=== PATIENT | female | born 1985 | race Caucasian/White ===

== ENCOUNTER 2018-04-07 13:39 | Emergency (ER) | payer MEDICAID ==
[~2018-04-07] VITALS: Ht 149.9 cm; Wt 47.7 kg
[2018-04-07] MEDS ORDERED: GABA-531 PO (14:04)
[2018-04-07] MEDS ORDERED: CLON.5 PO (14:04)
[2018-04-07] MEDS ORDERED: PHEN100C23 PO ×2 (14:04)
[2018-04-07] MEDS ORDERED: SUMA25TA9 PO (14:04)
[2018-04-07] MEDS ORDERED: SUMAtriptan SUCCINATE 6 MG/0.5 ML VIAL SQ ONE (16:00)
[2018-04-07] MEDS ORDERED: LORazepam 2 MG/ML VIAL IVP ONE (17:00)
[2018-04-07 17:53] LABS: BASOPHILS % (AUTO) 0.5 % (0.0-2.0); EOSINOPHILS % (AUTO) 0.4 % (1.0-6.0); LYMPHOCYTES # (AUTO) 1.4 K/uL (1.0-4.8); LYMPHOCYTES % (AUTO) 29.7 % (22.0-44.0); MEAN CORPUSCULAR HEMOGLOBIN 32.6 pg (26.0-34.0); MEAN CORPUSCULAR HGB CONC 34.1 G/dL (31.0-37.0); MEAN CORPUSCULAR VOLUME 96 fL (80-100); MONOCYTES # (AUTO) 0.4 K/uL (0.1-1.0); MONOCYTES % (AUTO) 8.5 % (2.0-9.0); NEUTROPHILS # (AUTO) 2.9 K/uL (1.8-7.7); NEUTROPHILS % (AUTO) 60.9 % (40.0-70.0); PLATELET COUNT (AUTO) 242 K/uL (150-450); RED BLOOD CELL COUNT(AUTO) 3.97 MIL/uL (4.00-5.20); RED CELL DISTRIBUTION WIDTH 14.2 % (11.5-14.5)
[2018-04-07 18:02] LABS: ANION GAP 11 mmol/L (8-16); CALCIUM, TOTAL 8.9 mg/dL (8.8-10.5); CARBON DIOXIDE 25 mmol/L (22-29); CHLORIDE 105 mmol/L (98-107); GLOMERULAR FILTR. RATE CALC > 60 mL/min (>60); GLUCOSE,RANDOM 60 mg/dL (70-110); POTASSIUM 3.6 mmol/L (3.5-5.1); SODIUM SERUM 141 mmol/L (136-145); UREA NITROGEN, BLOOD 6 mg/dL (7-18)
[2018-04-07 18:09] LABS: ALANINE AMINOTRANSFERASE 35 U/L (12-78); ALBUMIN 3.8 g/dL (3.4-5.0); ALKALINE PHOSPHATASE 48 U/L (46-116); ASPARTATE AMINOTRANSFERASE 17 U/L (15-37); BILIRUBIN,TOTAL 0.3 mg/dL (0.1-1.0); PHENYTOIN (DILANTIN) 11.2 mcg/mL (10.0-20.0); TOTAL PROTEIN, SERUM 6.4 g/dL (6.4-8.2)
[2018-04-07] MEDS ORDERED: PHENYTOIN SODIUM 500 MG in SODIUM CHLORIDE 0.9% 100 ML IV ONE (18:30)
[2018-04-07] MEDS ORDERED: KETOROLAC TROMETHAMINE 30 MG/ML VIAL IVP ONE (18:30)
[2018-04-07] MEDS ORDERED: METOCLOPRAMIDE HCL 5 MG/ML 2 ML VIAL IVP ONE (18:30)
[2018-04-07] MEDS ORDERED: HYDROmorphone 2 MG/ML SYRINGE IVP ONE (18:30)
[2018-04-07] MEDS ORDERED: SODIUM CHLORIDE 0.9% 1,000 ML IV ONE (19:09)
[2018-04-07] MEDS ORDERED: DiphenhydrAMINE HCL 50 MG/ML VIAL IVP ONE ×2 (19:15→21:15)
[2018-04-07] MEDS ORDERED: DEXAMETHASONE SOD PHOS 4 MG/ML 5 ML VIAL IVP ONE (19:30)
[2018-04-07] MEDS ORDERED: MORPHINE SULFATE 2 MG/ML SYRINGE IVP ONE (20:15)
[2018-04-07 20:16] VITALS: BP 115/77
== END 2018-04-07 21:30 | disposition home or self-care (01) ==
LOC: EMS 13:41
DX: G43.909 Migraine, unspecified, not intractable, without status migrainosus (principal); D49.7 Neoplasm of unspecified behavior of endocrine glands and other parts of nervous system; C95.90 Leukemia, unspecified not having achieved remission; Z88.8 Allergy status to other drugs, medicaments and biological substances
CPT/HCPCS: 36415; 70450; 80053; 80185; 85025; 96365; 96372; 96375; 96376; 99285; J1100; J1165; J1170; J1200; J1885; J2060; J2270; J2765; J3030; J7030; J7050

== ENCOUNTER 2019-10-10 21:19 | Inpatient (IN) | payer MEDICAID ==
[~2019-10-10] VITALS: Ht 157.5 cm; Wt 47.3 kg
[~2019-10-10 21:19] MED LIST: CLON.5 PO; GABA-531 PO; PHEN100C23 PO; SUMA25TA9 PO
[2019-10-10] MEDS ORDERED: LevETIRAcetam 1,500 MG in DEXTROSE 5%-WATER 100 ML IV ONE (21:45)
[2019-10-10 22:54] LABS: BASOPHILS % (AUTO) 0.7 % (0.0-2.0); EOSINOPHILS % (AUTO) 1.4 % (1.0-6.0); HEMATOCRIT 37.6 % (36-46); HEMOGLOBIN 12.8 g/dL (12.0-16.0); LYMPHOCYTES # (AUTO) 1.8 K/uL (1.0-4.8); MEAN CORPUSCULAR HEMOGLOBIN 32.6 pg (26.0-34.0); MEAN CORPUSCULAR VOLUME 96 fL (80-100); MONOCYTES # (AUTO) 0.4 K/uL (0.1-1.0); NEUTROPHILS % (AUTO) 56.9 % (40.0-70.0); PLATELET COUNT (AUTO) 271 K/uL (150-450); RED BLOOD CELL COUNT(AUTO) 3.91 MIL/uL (4.00-5.20)
[2019-10-10] MEDS ORDERED: SODIUM CHLORIDE 0.9% 1,000 ML IV ONE (23:00)
[2019-10-10] MEDS ORDERED: METOCLOPRAMIDE HCL 5 MG/ML 2 ML VIAL IVP ONE (23:00)
[2019-10-10 23:05] LABS: ANION GAP 10 mmol/L (8-16); CALCIUM, TOTAL 8.7 mg/dL (8.8-10.5); CARBON DIOXIDE 25 mmol/L (22-29); CHLORIDE 107 mmol/L (98-107); CREATININE 0.64 mg/dL (0.60-1.30); GLOMERULAR FILTR. RATE CALC > 60 mL/min (>60); GLUCOSE,RANDOM 70 mg/dL (70-110); POTASSIUM 3.6 mmol/L (3.5-5.1); SODIUM SERUM 142 mmol/L (136-145); UREA NITROGEN, BLOOD 5 mg/dL (7-18)
[2019-10-10 23:14] LABS: LACTIC ACID 0.9 mmol/L (0.4-2.0)
[2019-10-10] MEDS ORDERED: PHENYTOIN SODIUM 500 MG in SODIUM CHLORIDE 0.9% 100 ML IV ONE (23:15)
[2019-10-10 23:30] LABS: ALANINE AMINOTRANSFERASE 20 U/L (12-78); ALKALINE PHOSPHATASE 52 U/L (46-116); ASPARTATE AMINOTRANSFERASE 21 U/L (15-37); BILIRUBIN,TOTAL 0.4 mg/dL (0.1-1.0); CREATINE KINASE, TOTAL ONLY 464 U/L (26-192); HCG,QUANTITATIVE < 1 mIU/mL (0-6); TOTAL PROTEIN, SERUM 6.9 g/dL (6.4-8.2)
[2019-10-10] MEDS ORDERED: 0.9% SODIUM CHLORIDE 10 ML SYRINGE IVP PRN (23:45)
[2019-10-10] MEDS ORDERED: ACETAMINOPHEN 325 MG TABLET PO PRN (23:45)
[2019-10-10] MEDS: LORazepam 2 MG/ML VIAL IVP PRN (23:57)
[2019-10-11 03:17] VITALS: BP 91/68
[2019-10-11] MEDS: LORazepam 2 MG/ML VIAL IVP PRN (03:24)
[2019-10-11] MEDS ORDERED: LORazepam 2 MG/ML VIAL IVP PRN ×2 (03:30→18:30)
[2019-10-11 05:13] LABS: APPEARANCE,URINE CLEAR (CLEAR); BILIRUBIN,URINE NEGATIVE (NEGATIVE); GLUCOSE, URINE (UA) NEGATIVE (NEGATIVE); KETONES,URINE TRACE mg/dL (NEGATIVE); LEUKOCYTE ESTERASE ,URINE NEGATIVE (NEGATIVE); NITRATE,URINE NEGATIVE (NEGATIVE); OCCULT BLOOD,URINE LARGE (NEGATIVE); PH,URINE 5.5 (5.0-8.0); PROTEIN,URINE NEGATIVE (NEGATIVE); UROBILINOGEN,URINE 0.2 mg/dL (<=1.0)
[2019-10-11 05:18] LABS: AMPHET/METH SCREEN,URINE NEGATIVE (NEGATIVE); BARBITURATE SCREEN, URINE NEGATIVE (NEGATIVE); BENZODIAZEPINES SCREEN,URINE POSITIVE (NEGATIVE); CANNABINOID SCREEN,URINE POSITIVE (NEGATIVE); COCAINE SCREEN,URINE NEGATIVE (NEGATIVE); METHADONE SCREEN, URINE NEGATIVE (NEGATIVE); OPIATE SCREEN,URINE NEGATIVE (NEGATIVE)
[2019-10-11 05:19] LABS: PHENCYCLIDINE SCREEN,URINE NEGATIVE (NEGATIVE)
[2019-10-11 05:22] LABS: BACTERIA,URINE None Seen /HPF (None Seen); WBC,URINE 0-2 /HPF (0-5)
[2019-10-11 05:23] LABS: SQUAMOUS EPITHELIAL CELL,UR Moderate /LPF (None Seen)
[2019-10-11] MEDS ORDERED: PNEUMOCOCCAL VACCINE POLYVALENT 0.5 ML VIAL [PPSV23] IM ONE (07:15)
[2019-10-11] MEDS ORDERED: INFLUENZA VIRUS VACCINE QVS 2019-20 (3YR+)/PF 60 MCG/0.5 ML SYRINGE IM ONE (07:15)
[2019-10-11 08:19] VITALS: BP 100/65
[2019-10-11] MEDS ORDERED: SUMAtriptan SUCCINATE 25 MG TABLET PO PRN (08:30)
[2019-10-11] MEDS ORDERED: LACOSAMIDE 100 MG TABLET PO SCH (09:00)
[2019-10-11] MEDS ORDERED: KETOROLAC TROMETHAMINE 10 MG TABLET PO ONE (09:00)
[2019-10-11] MEDS: GABAPENTIN 300 MG CAPSULE PO SCH ×3 (11:23→20:47)
[2019-10-11] MEDS: ClonazePAM 0.5 MG TABLET PO SCH (11:24)
[2019-10-11] MEDS ORDERED: LORazepam 2 MG/ML VIAL IM ONE (11:30)
[2019-10-11 11:39] LABS: GLUCOMETER DEV NAME(LOC) 5S.1; GLUCOSE,POINT OF CARE 56 MG/DL (70-110)
[2019-10-11 11:39] LABS: GLUCOMETER DEV NAME(LOC) 5S.1; GLUCOSE,POINT OF CARE 77 MG/DL (70-110)
[2019-10-11 11:59] VITALS: BP 97/68
[2019-10-11] MEDS ORDERED: LORazepam 2 MG/ML VIAL IVP ONE (12:30)
[2019-10-11] MEDS ORDERED: LACOSAMIDE 100 MG in DEXTROSE 5%-WATER 100 ML IV SCH (16:00)
[2019-10-11 17:20] VITALS: BP 119/74
[2019-10-11 18:22] VITALS: BP 119/66
[2019-10-11 19:34] VITALS: BP 105/58
[2019-10-11] MEDS: TraMADol HCL 50 MG TABLET PO PRN (21:45)
[2019-10-11] MEDS: LACOSAMIDE 100 MG TABLET PO SCH (21:45)
[2019-10-11] MEDS: PHENYTOIN SODIUM 100 MG ER CAPSULE PO SCH (21:45)
[2019-10-11] MEDS: PROMETHAZINE HCL 25 MG TABLET PO PRN (23:38)
[2019-10-12 00:04] VITALS: BP 107/71
[2019-10-12 03:52] VITALS: BP 110/72
[2019-10-12] MEDS ORDERED: DiphenhydrAMINE HCL 25 MG CAPSULE PO PRN (04:30)
[2019-10-12 08:02] VITALS: BP 103/67
[2019-10-12] MEDS ORDERED: DiphenhydrAMINE HCL 50 MG/ML VIAL ONE (08:30)
[2019-10-12] MEDS: PHENYTOIN SODIUM 100 MG ER CAPSULE PO SCH ×2 (08:34→20:39)
[2019-10-12] MEDS: GABAPENTIN 300 MG CAPSULE PO SCH ×3 (08:34→20:40)
[2019-10-12] MEDS: ClonazePAM 0.5 MG TABLET PO SCH (08:34)
[2019-10-12] MEDS: LACOSAMIDE 100 MG TABLET PO SCH ×2 (08:34→20:39)
[2019-10-12] MEDS: DiphenhydrAMINE HCL 50 MG/ML VIAL IVP PRN ×3 (08:39→21:24)
[2019-10-12 16:06] VITALS: BP 111/68
[2019-10-12] MEDS ORDERED: IPRATROPIUM BROMIDE 0.5 MG/2.5 ML NEB SOLUTION NEB PRN (20:30)
[2019-10-12] MEDS ORDERED: BISACODYL 10 MG RECTAL RECTAL SUPPOSITORY PR PRN (20:30)
[2019-10-12] MEDS ORDERED: ALBUTEROL SULFATE 2.5 MG/0.5 ML NEB SOLUTION NEB PRN (20:30)
[2019-10-12] MEDS ORDERED: HYDROCODONE/ACETAMINOPHEN 5-325 MG TABLET PO PRN (20:30)
[2019-10-12] MEDS ORDERED: ONDANSETRON HCL 4 MG/2 ML VIAL IVP PRN (20:30)
[2019-10-12] MEDS ORDERED: ACETAMINOPHEN 325 MG TABLET PO PRN (20:30)
[2019-10-12] MEDS ORDERED: MAGNESIUM HYDROXIDE SUSPENSION 30 ML UDCUP PO PRN (20:30)
[2019-10-12 20:39] VITALS: BP 117/75
[2019-10-12] MEDS: DOCUSATE SODIUM 100 MG CAPSULE PO SCH (20:40)
[2019-10-12] MEDS: ZOLPIDEM TARTRATE 5 MG TABLET PO PRN (22:36)
[2019-10-12] MEDS: HEPARIN SODIUM,PORCINE 5,000 UNITS/ML VIAL SQ SCH (23:15)
[2019-10-13] VITALS (8 sets, daily range): BP systolic 112–131; BP diastolic 72–85
[2019-10-13] MEDS: DiphenhydrAMINE HCL 50 MG/ML VIAL IVP PRN ×4 (02:34→20:47)
[2019-10-13] MEDS: MORPHINE SULFATE 2 MG/ML SYRINGE IVP PRN ×3 (05:47→20:47)
[2019-10-13] MEDS: ClonazePAM 1 MG TABLET PO SCH (08:50)
[2019-10-13] MEDS: DOCUSATE SODIUM 100 MG CAPSULE PO SCH ×2 (08:50→20:38)
[2019-10-13] MEDS: GABAPENTIN 300 MG CAPSULE PO SCH ×3 (08:51→20:38)
[2019-10-13] MEDS: LACOSAMIDE 100 MG TABLET PO SCH ×2 (08:51→20:38)
[2019-10-13] MEDS: PHENYTOIN SODIUM 100 MG ER CAPSULE PO SCH ×2 (08:51→20:38)
[2019-10-13] MEDS: HEPARIN SODIUM,PORCINE 5,000 UNITS/ML VIAL SQ SCH ×3 (08:51→23:39)
[2019-10-13] MEDS ORDERED: PROMETHAZINE HCL 25 MG/ML VIAL IM PRN (22:15)
[2019-10-13] MEDS ORDERED: SODIUM CHLORIDE 0.9% 1,000 ML ONE (22:25)
[2019-10-13] MEDS ORDERED: PROMETHAZINE HCL 12.5 MG RECTAL SUPPOSITORY PR PRN (22:30)
[2019-10-13] MEDS ORDERED: SODIUM CHLORIDE 0.9% 1,000 ML IV SCH (22:30)
[2019-10-13] MEDS: ZOLPIDEM TARTRATE 5 MG TABLET PO PRN (22:48)
[2019-10-13] MEDS: TraMADol HCL 50 MG TABLET PO PRN (22:50)
[2019-10-14] MEDS: MORPHINE SULFATE 2 MG/ML SYRINGE IVP PRN ×3 (00:47→08:57)
[2019-10-14 02:00] VITALS: BP 105/57
[2019-10-14] MEDS: PROMETHAZINE HCL 25 MG TABLET PO PRN (02:11)
[2019-10-14] MEDS: DiphenhydrAMINE HCL 50 MG/ML VIAL IVP PRN ×2 (05:46→11:50)
[2019-10-14 06:05] LABS: GLUCOMETER DEV NAME(LOC) 6N.2; GLUCOSE,POINT OF CARE 121 MG/DL (70-110)
[2019-10-14] MEDS: HEPARIN SODIUM,PORCINE 5,000 UNITS/ML VIAL SQ SCH (08:57)
[2019-10-14] MEDS: DOCUSATE SODIUM 100 MG CAPSULE PO SCH (08:57)
[2019-10-14] MEDS: LACOSAMIDE 100 MG TABLET PO SCH (08:59)
[2019-10-14] MEDS: ClonazePAM 1 MG TABLET PO SCH (08:59)
[2019-10-14] MEDS: GABAPENTIN 300 MG CAPSULE PO SCH (08:59)
[2019-10-14] MEDS: PHENYTOIN SODIUM 100 MG ER CAPSULE PO SCH (08:59)
[2019-10-14 09:53] VITALS: BP 127/70
[2019-10-14 10:43] LABS: BASOPHILS % (AUTO) 0.5 % (0.0-2.0); EOSINOPHILS % (AUTO) 0.9 % (1.0-6.0); HEMATOCRIT 35.1 % (36-46); HEMOGLOBIN 11.9 g/dL (12.0-16.0); LYMPHOCYTES # (AUTO) 1.4 K/uL (1.0-4.8); LYMPHOCYTES % (AUTO) 26.7 % (22.0-44.0); MEAN CORPUSCULAR HEMOGLOBIN 32.5 pg (26.0-34.0); MEAN CORPUSCULAR HGB CONC 33.8 G/dL (31.0-37.0); MEAN CORPUSCULAR VOLUME 96 fL (80-100); MONOCYTES # (AUTO) 0.3 K/uL (0.1-1.0); MONOCYTES % (AUTO) 5.9 % (2.0-9.0); NEUTROPHILS # (AUTO) 3.5 K/uL (1.8-7.7); PLATELET COUNT (AUTO) 260 K/uL (150-450); RED BLOOD CELL COUNT(AUTO) 3.65 MIL/uL (4.00-5.20); RED CELL DISTRIBUTION WIDTH 12.8 % (11.5-14.5)
[2019-10-14 10:56] LABS: ALANINE AMINOTRANSFERASE 18 U/L (12-78); ALKALINE PHOSPHATASE 50 U/L (46-116); ANION GAP 11 mmol/L (8-16); ASPARTATE AMINOTRANSFERASE 17 U/L (15-37); BILIRUBIN,TOTAL 0.3 mg/dL (0.1-1.0); CALCIUM, TOTAL 8.6 mg/dL (8.8-10.5); CARBON DIOXIDE 29 mmol/L (22-29); CHLORIDE 106 mmol/L (98-107); CREATININE 0.55 mg/dL (0.60-1.30); GLOMERULAR FILTR. RATE CALC > 60 mL/min (>60); GLUCOSE,RANDOM 124 mg/dL (70-110); PHOSPHORUS 3.8 mg/dL (2.5-4.9); POTASSIUM 3.2 mmol/L (3.5-5.1); SODIUM SERUM 146 mmol/L (136-145); TOTAL PROTEIN, SERUM 6.8 g/dL (6.4-8.2); UREA NITROGEN, BLOOD 4 mg/dL (7-18)
[2019-10-14 12:19] VITALS: BP 115/81
== END 2019-10-14 13:27 | disposition home or self-care (01) | DRG 53 ==
LOC: EMS 21:22 → 5S 10-11 01:30 → 6N 10-12 21:05
PROVIDERS: ADMIT Hospitalist; ATTEND Hospitalist
PROC: 4A00X4Z Measurement of Central Nervous Electrical Activity, External Approach (ICD-10-PCS; principal; 2019-10-11)
PROC: 05HY33Z Insertion of Infusion Device into Upper Vein, Percutaneous Approach (ICD-10-PCS; 2019-10-11)
DX: G40.909 Epilepsy, unspecified, not intractable, without status epilepticus (principal); F17.200 Nicotine dependence, unspecified, uncomplicated; Z79.899 Other long term (current) drug therapy; Z88.8 Allergy status to other drugs, medicaments and biological substances; Z85.6 Personal history of leukemia; Z88.1 Allergy status to other antibiotic agents
CPT/HCPCS: 36245; 36569; 70450; 76937; 83605; 83735; 84100; 87081; 93005; 95816; C9254; J0712; J1165; J1200; J1644; J2060; J2270; J2765; J7030; J7050; J7060